=== PATIENT | female | born 1995 | race Caucasian/White ===

== ENCOUNTER 2021-05-21 07:47 | Emergency (ER) | payer BC, SELFPAY ==
--- NOTE | ~2021-05-21 | CT_ITS ---
EXAMINATION: CT abdomen pelvis w con DATE: 05/21/2021 08:46 INDICATION: Upper abdominal pain TECHNIQUE: Computed tomography (CT) of the abdomen and pelvis was performed with 100 mL Omnipaque-350 intravenous contrast. Automated exposure control and iterative reconstruction technique were employe d. The dose-length product was 415.55 mGy-cm. COMPARISON: None FINDINGS: Lung bases are clear. Heart size is normal. No pericardial or pleural effusion. Minimal focal hepatic steatosis at the ligamentum teres. Gallbladder is mildly distended with small amount of layering slu dge or stones at a phrygian cap at the fundus. No abnormal gallbladder wall thickening or pericholecy stic inflammatory change to suggest acute cholecystitis. Minimal intrahepatic biliary ductal dilation . The common bile duct measures 5 mm in maximal diameter which is within normal limits. Spleen, pancr eas, bilateral adrenal glands and kidneys are normal. Bowels including the appendix are normal. Bladd er is normal. 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 This could be due to collateral iraida inage of the left kidney resulting from compression of the left renal vein between the aorta and supe rior mesenteric artery. Retroverted uterus and bilateral adnexa are otherwise unremarkable. No free i ntraperitoneal gas or fluid. No pathologically enlarged abdominal or pelvic lymphadenopathy. L5 spond ylolysis with bilateral pars interarticularis defects and 3 mm anterolisthesis on S1. IMPRESSION: 1. Minimal intrahepatic biliary ductal dilation with suggestion of sludge versus stones within the mi ldly dilated but otherwise normal-appearing gallbladder with normal common bile duct diameter 5 mm. C orrelate with liver function tests and for Gagnon sign and could consider right upper quadrant ultras ound as clinically indicated. 2. L5 spondylolysis with 3 mm anterolisthesis on S1. 2. Dilated left gonadal vein and parametrial vessels which could be seen with pelvic vascular congest ion syndrome which is a clinical diagnosis. Reviewed, dictated and finalized at location A. IMPRESSION: 1. Minimal intrahepatic biliary ductal dilation with suggestion of sludge versu s stones within the mildly dilated but otherwise normal-appearing gallbladder w ith normal common bile duct diameter 5 mm. Correlate with liver function tests and for Gagnon sign and could consider right upper quadrant ultrasound as clini arturo indicated. 2. L5 spondylolysis with 3 mm anterolisthesis on S1. 2. 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
--- NOTE | ~2021-05-21 | US_ITS ---
EXAMINATION: US abdomen limited DATE: 05/21/2021 10:00 INDICATION: Abdominal pain. TECHNIQUE: Multiple grayscale and Doppler ultrasound images of the abdomen were obtained. COMPARISON: CT abdomen and pelvis 05/21/2021 FINDINGS: The visualized portions of the head, body, and tail of the pancreas are normal. The liver i s normal without focal lesion. There is normal flow in main portal vein. The gallbladder is distended and contains gallstones. No gallbladder wall thickening. There is a positive sonographic Gagnon sign . The common duct is normal and measures 6 mm. IMPRESSION: 1. Distended gallbladder with gallstones and positive sonographic Gagnon sign, consistent with acute cholecystitis. Reviewed, dictated and finalized at location A.
[2021-05-21 07:54] VITALS: BP 133/71; PULSE 83; RESP 18; TEMP 36.6; O2SAT 99
[2021-05-21 08:12] LABS: Basophils Percent Auto 0.4 % (0.2-1.2); Eosinophils Absolute Auto 0.1 K/mm3 (0-0.3); Eosinophils Percent Auto 1.3 % (0-4.4); Hematocrit 46.4 % (37.0-47.0); Hemoglobin 14.8 g/dL (12.0-15.0); Immature Granulocyte Absolute 0.03 K/mm3 (0.00-0.031); Immature Granulocyte Percent A 0.3 % (0-0.5); Lymphocytes Percent Auto 19.3 % (18.3-44.2); Mean Corpuscular HGB Conc 31.9 g/dl (32-36); Mean Corpuscular Hemoglobin 27.3 pg (26-34); Mean Corpuscular Volume 85.6 fl (80-100); Mean Platelet Volume 10.4 fl (7.4-10.4); Monocytes Absolute Auto 0.7 K/mm3 (0.1-0.6); Monocytes Percent Auto 6.6 % (2.6-8.5); Neutrophils Absolute Auto 7.1 K/mm3 (1.3-6.7); Neutrophils Percent Auto 72.1 % (45.5-73.1); Platelet Count Result 261 k/mm3 (150-375); Red Blood Count 5.42 M/mm3 (4.2-5.4); Red Cell Distribution Width 12.3 % (11.5-14.5); White Blood Count 9.9 K/mm3 (4.5-10.0)
[2021-05-21] MEDS: SODIUM CHLORIDE 0.9% IV 1,000 ML 999 ML IV CONT (08:22)
--- NOTE | 2021-05-21 08:22 | ED.ABDPAIN ---
HPI - Abdominal Pain General Chief Complaint: Abdominal Pain Stated Complaint: Abd Pain Time Seen by Provider: 05/21/21 08:10 Source: patient and RN notes reviewed Mode of arrival: ambulatory Limitations: no limitations History of Present Illness HPI narrative: Patient is 25 years old white female presents to the ED with epigastric right upper quadrant pain started 2 to 3 hours prior to arrival associated with nausea and radiation to the back. Dull aching, worse with bending forward, better standing or laying flat. Patient reported having recurrent similar symptoms since January 2021 without a specific diagnosis. Status post section December 2020. Patient denies any fever, vomiting, diarrhea, constipation, urinary symptoms, vaginal bleeding or discharge Related Data Allergies Allergy/AdvReac Type Severity Reaction Status Date / Time No Known Allergies Allergy Verified 05/21/21 07:58 Review of Systems Review of Systems: Narrative: CONSTITUTIONAL: Denies fever, chills, or sweats. EYES: Denies visual changes, redness, or discharge. ENT: Denies rhinorrhea, congestion, sore throat, or otalgia. CARDIOVASCULAR: Denies chest pain, palpitations, or edema. RESPIRATORY: Denies cough or dyspnea. GASTROINTESTINAL: Denies abdominal pain, nausea, vomiting, or diarrhea. GENITOURINARY: Denies dysuria or hematuria. SKIN: Denies rash or itching. MUSCULOSKELETAL: Denies back pain, joint pain, or myalgia. NEUROLOGIC: Denies headache, numbness, or weakness. PSYCHIATRIC: Denies anxiety or depression. PMFSH Social History Social History Gender identity (if verbalized by the patient): Female Exam Narrative: Exam Narrative: General appearance: Well-developed, well-nourished Skin: Normal color Head: Normocephalic, nontraumatic Eyes: Clear conjunctiva ENT: Oropharynx normal, ears normal, nose normal Neck: Supple, nontender Chest and respiratory: Airway patent, no respiratory distress, no accessory muscle use Heart: Regular rate/rhythm Abdomen: Soft, moderate tenderness right upper quadrant, no organomegaly, quiet bowel sounds Vascular: Normal peripheral pulses, normal capillary refill. Musculoskeletal: Normal range of motion, nontender back Neurologic: Alert and oriented ?3, [employer] is normal as tested, no gross motor deficit Course Consultations Consultation #1: Dr. Gaona Patient can go home, outpatient follow-up Date: 05/21/21 Time: 11:08 Vital Signs Vital signs: Vital Signs Temperature 36.6 C 05/21/21 07:54 Pulse Rate 83 05/21/21 07:54 Respiratory Rate 18 05/21/21 07:54 Blood Pressure 133/71 05/21/21 07:54 Pulse Oximetry 99 05/21/21 07:54 Temperature 36.6 C 05/21/21 07:54 Pulse Rate 88 05/21/21 09:29 Respiratory Rate 18 05/21/21 09:29 Blood Pressure 121/67 05/21/21 09:29 Pulse Oximetry 99 05/21/21 09:29 MDM - Abdominal Pain MDM Narrative Medical decision making narrative: Right upper quadrant pain, epigastric pain, Gallbladder, pancreatitis are my concern. Labs, IV fluid, IV Dilaudid, IV Zofran, CT abdomen pelvis with IV contrast ordered. Further plan to follow Differential Diagnosis Differential diagnosis: Likely abdominal pain, acute appendicitis, constipation, diverticulitis and pancreatitis Lab Data Result diagrams: 05/21/21 08:03 05/21/21 08:03 Labs: Lab Results 05/21/21 05/21/21 05/21/21 Range/Units 08:03 08:03 08:03 WBC 9.9 (4.5-10.0) K/mm3 RBC 5.42 H (4.2-5.4) M/mm3 Hgb 14.8 (12.0-15.0) g/dL Hct 46.4 (37.0-47.0) % MCV 85.6 (80-100) fl MCH 27.3 (26-34) pg MCHC 31.9 L (32-36) g/
[2021-05-21 08:23] LABS: Add Urine Microscopic? YES; Appearance Urine Cloudy (Clear); Bacteria Urine Trace /hpf; Bilirubin Urine Negative (Negative); Blood Urine 1+ (Negative); Budding Yeast Urine Present /hpf; Color Urine Yellow (Yellow); Glucose Urine UA Negative (Negative); Ketones Urine Negative (Negative); Leukocyte Esterase Ur 3+ LEU/UL (Negative); Mucus Urine Rare /lpf; Nitrate Urine Negative (Negative); Protein Urine 1+ mg/dL (Negative); Specific Grav Ur 1.026 (1.001-1.035); Squamous Epithelial Cell Urine Many /hpf (Few); Urobilinogen Urine Negative mg/dL (<2.0); WBC Urine 21-30 /hpf
[2021-05-21 08:25] LABS: Alanine Aminotransferase 32 U/L (4-35); Albumin Level 5.1 g/dL (3.5-5.1); Alkaline Phosphatase 75 U/L (38-126); Anion Gap 12 mmol/L (8-16); Aspartate Amino Transferase 51 U/L (14-36); Bilirubin,Total 0.8 mg/dL (0.2-1.3); Blood Urea Nitrogen 14 mg/dL (7-17); Calcium 9.6 mg/dL (8.4-10.2); Carbon Dioxide 23 mmol/L (22-30); Chloride 107 mmol/L (98-107); Estimated CRCL calculation 102 ml/min; Estimated Glomerular Filt Rate > 60; Glucose 88 mg/dL (65-105); Lipase 226 U/L (23-300); Potassium 4.3 mmol/L (3.4-5.0); Sodium 142 mmol/L (137-145)
[2021-05-21 09:29] VITALS: BP 121/67; PULSE 88; RESP 18; O2SAT 99
--- NOTE | 2021-05-21 09:36 | PC.NURSE ---
US at bedside to perform ultrasound
[2021-05-21 11:09] VITALS: BP 125/71; PULSE 87; RESP 18; O2SAT 100
== END 2021-05-21 11:22 | disposition home or self-care (01) ==
PROVIDERS: Emergency Provider Emergency Medicine; PCP Nurse Practitioner Family
DX: K81.0 Acute cholecystitis (principal); M43.06 Spondylolysis, lumbar region
CPT/HCPCS: 36415; 74177; 76705; 80053; 81001; 81025; 83690; 85025; 87086; 96365; 96367; 99284; J0131; J0696; J7030; Q9967

== ENCOUNTER → 2021-06-12 07:49 | Outpatient (CLI) | payer BC, SELFPAY ==
[2021-06-12 17:52] LABS: SARS-CoV-2 RNA PCR Negative
== END ==
PROVIDERS: PCP Nurse Practitioner Family; Visit Provider Surgery
DX: Z01.812 Encounter for preprocedural laboratory examination (principal); Z20.822 Contact with and (suspected) exposure to COVID-19
CPT/HCPCS: C9803; U0003; U0005

== ENCOUNTER 2021-06-12 07:50 | Outpatient (CLI) | payer BC, SELFPAY ==
[2021-06-12 08:24] LABS: Alanine Aminotransferase 25 U/L (4-35); Albumin Level 4.7 g/dL (3.5-5.1); Alkaline Phosphatase 80 U/L (38-126); Amylase 64 U/L (30-110); Aspartate Amino Transferase 19 U/L (14-36); Bilirubin,Total 0.7 mg/dL (0.2-1.3); Lipase 195 U/L (23-300)
== END 2021-06-12 07:51 | disposition home or self-care (01) ==
LOC: ANHSURGERY 07:54
PROVIDERS: Anesthesiology; PCP Nurse Practitioner Family; Visit Provider Surgery
DX: K81.9 Cholecystitis, unspecified (principal)
CPT/HCPCS: 36415; 80076; 82150; 83690; 86850; 86900; 86901

== ENCOUNTER 2021-06-15 02:17 | Day surgery (SDC) | payer BC, SELFPAY ==
[2021-06-09 14:12] VITALS: BMI 28.0
[2021-06-15] VITALS (10 sets, daily range): BP systolic 105–139; BP diastolic 54–87; PULSE 59–79; RESP 14–22; TEMP 36.2–36.5; O2SAT 97–100
[2021-06-15] MEDS: LACTATED RINGERS 1,000 ML 30 ML IV CONT ×2 (13:36→15:14)
--- NOTE | 2021-06-15 13:53 | P.PNAN_ITS ---
Anes - Initial Pre Proc Eval Procedure: Operation Date: 06/15/21 15:00 Proposed Procedures p Laparoscopic Cholecystectomy - Mary Gaona MD Date/Time: 06/15/21 13:53 Surgeon: Mary Gaona MD Pre Op Diagnosis: acute cholecystitis with stones Patient Data Age: 25 Gender: F Height: 1.6 m Weight: 72 kg Allergies Allergy/AdvReac Type Severity Reaction Status Date / Time No Known Allergies Allergy Verified 06/15/21 13:52 Home Medications Medication Instructions Recorded Confirmed Type hydrocodone-acetaminophen 1 tablet PO DAILY #20 tablet 05/21/21 06/15/21 Rx prenat.vits,parvez,ydq-pbau-hpuia 1 tablet PO DAILY 05/26/21 06/15/21 History norethindrone (contraceptive) 0.35 mg PO DAILY 06/09/21 06/15/21 History Patient hx anesthesia problems: none Family hx anesthesia problems: none [facility] Past Medical History Medical History (Updated 06/15/21 @ 13:52 by Yoel Alarcon MD) BMI 28.0-28.9,adult Surgical History Surgical History History of delivery Social History Social History Smoking status: Never smoker Alcohol intake: never Substance use: never Substance use type: does not use Living arrangements: with family Gender identity (if verbalized by the patient): Female Sexual Orientation (if Verbalized by the Patient): Straight or Heterosexual Spiritual care concerns: No Anes - Eval Final PreProcedure Day of Procedure 06/15/21 13:53 Patient weight: overweight Heart: regular rate and rhythm Lungs: clear to auscultation Airway: Mallampati scale class II Neurological: alert and oriented Last oral intake: >/= 8 hours ASA classification: II Emergent: no Anesthetic plan: proceed Anesthesia type and monitoring: general ETT and standard monitoring Informed Consent: The patient's anesthetic plan and its attendant risks and benefits were discussed with the patient/family/POA. Questions were solicited and answers provided to the satisfaction of the patient/family/POA.
--- NOTE | 2021-06-15 14:06 | WPDHPUPDATE1 ---
History and Physical Update Update Date/Time: 06/15/21 14:06 History and Physical has been reviewed, including an updated exam of the patient. There are NO changes in the patient's condition. Risks, benefits, and alternatives have been discussed and questions answered. Patient agrees to proceed with procedure.
[2021-06-15] MEDS: ceFAZolin 2 GM/D5W 50 ML 2 GM/50 ML BAG IVPB (14:15)
[2021-06-15] MEDS: BUPIVACAINE/EPINEPHRINE 0.5% 30 ML VIAL INFILTRATE (14:43)
--- NOTE | 2021-06-15 15:15 | W.PM.PROC2 ---
Procedure Note - Detailed Date of Procedure 06/15/21 Pre-op Diagnosis acute cholecystitis with stones Post-op Diagnosis same Procedure Performed Laparoscopic cholecystectomy Surgeon Mary Gaona MD Anesthesia general Indications 25-year-old female presented to the office complaining of postprandial right upper quadrant abdominal pain associated with nausea and vomiting. Workup including imaging significant for cholecystitis, cholelithiasis. Findings Cholecystitis with cholelithiasis Description of Procedure The patient was taken to the operating room placed in the supine position. After adequate induction of general anesthesia, the patient was prepped and draped in normal sterile fashion. A time-out was then performed to verify the patient's identity as well as the procedure being performed. I then made a 5 mm incision in the infraumbilical region. Through this, a Veress needle was placed into the peritoneal cavity and CO2 gas was then insufflated. After adequate pneumoperitoneum was achieved, the Veress needle was removed and a 5 mm optiview trocar was placed through this incision under direct visualization. I then placed the laparoscope through this trocar site and under direct visualization placed a further 12 mm subxiphoid port as well as 2 additional 5 mm ports in the right upper abdomen. The gallbladder was then identified and was noted to be moderately inflamed, distended, and full of gallstones. I was able to place a grasper at the dome of the gallbladder and this was retracted anterior and cephalad up over the liver. A 2nd retractor was then placed at the infundibulum and retracted laterally, this allowed visualization of the triangle of Calot. I then was able to visualize the cystic duct in its entirety from its proximal insertion into the gallbladder, to its distal junction with the common hepatic/common bile duct junction. At this point, I carefully skeletonized the proximal cystic duct with the [place] dissector. I then clipped and transected the proximal cystic duct. Next I visualized the cystic artery. Again the artery was skeletonized, clipped, and transected. I then used the Bovie cautery to take down the peritoneal attachments of the gallbladder off the liver bed. This was somewhat difficult given the amount of inflammation in the posterior space. Once the gallbladder specimen was completely detached, an endo-pouch was placed through the 12 mm port site. I then placed the gallbladder specimen into the Endo pouch and removed the endo-pouch from the 12 mm port site. The specimen will now be sent to pathology for further review. I then copiously irrigated the right upper quadrant. Some mild oozing was noted in the liver bed and this was controlled with the bovie cautery. I then placed some hemostatic powder in the liver bed. Hemostasis was noted in the liver bed, the clips were noted to be in good position on both the cystic duct stump and the cystic artery stump. No other pathology was noted in the right upper quadrant. I then moved the laparoscope to the subxiphoid port. No iatrogenic injury or other pathology was noted in the lower abdomen. I then closed the 12 mm trocar site under direct visualization using the Miller cone and 0 Vicryl suture. At this point, the abdomen was desufflated and all ports removed. All port sites were then closed with 4.O Monocryl subcuticular sutures. Dermabond was placed on each incision. The patient tolerated the procedure well, was extubated in the operating room postoperative and will be transferred to the recovery room in stable condition Estimated Blood Loss 5 Drains No Packing No Pathology yes Complications No immediate complications Condition stable Disposition PACU
== END 2021-06-15 17:48 | disposition home or self-care (01) ==
PROVIDERS: PCP Nurse Practitioner Family; Visit Provider Surgery
PROC: 0FT44ZZ Resection of Gallbladder, Percutaneous Endoscopic Approach (ICD-10-PCS; CPT 47562; principal; 2021-06-15 15:00)
DX: K80.10 Calculus of gallbladder with chronic cholecystitis without obstruction (principal)
CPT/HCPCS: 47562; 88304; A9270; C9803; J0330; J0690; J1100; J1170; J1885; J2250; J2405; J2704; J2710; J3010; J7030; J7120; U0003; U0005

== ENCOUNTER 2024-04-26 14:16 | Outpatient (CLI) | payer BC, SELFPAY ==
--- NOTE | ~2024-04-26 | US_ITS ---
COMPLETE AND LIMITED MATERNAL ULTRASOUND (Duplex and color flow interrogation techniques used f or this exam.) Ordering provider: Malou Garrison MD History: . Anatomy . Comparison: None Findings: Number of fetuses: 1 BIOMETRY: BPD: 4.3 cm (18 weeks 6 days) HC: 15.8 cm (17 weeks 1 days) AC: 12.9 cm (18 weeks days) FL: 2.7 cm (18 weeks 1 days) Today's average US gestational age: 18 weeks 4 days Today's EDC: September 23 2024 ( Estimated weight: 267.2gm . Rank: Less than 3% SCREENING OF ANATOMY: ( Y =seen and unremarkable.) Cerebellum: Yes Lateral ventricles: Yes Cisterna magna: Yes ( 5.3 mm) Stomach: Yes Kidneys: Yes Bladder: Yes Spine: Yes Three vessel cord: Yes Cord insertion: Yes Four chamber heart: Yes LVOT: Yes RVOT: Yes Lips and nose: Yes Upper extremity: Yes Lower extremity: Yes Cervix: ( 30 mm ) Presentation: Vertex. Placental location: Anterior Previa: No. Amniotic fluid index: Normal. Heart rate: 155 bpm IMPRESSION: No significant abnormal. Reviewed, dictated and finalized at location A. IMPRESSION: No significant abnormal.
== END 2024-04-26 14:17 ==
PROVIDERS: PCP Obstetrics & Gynecology Gynecology; Visit Provider Obstetrics & Gynecology Gynecology
DX: Z36.9 Encounter for antenatal screening, unspecified (principal)
CPT/HCPCS: 76805

== ENCOUNTER 2024-09-17 06:30 | Inpatient (IN) | payer BC, SELFPAY ==
[2024-09-17] VITALS (62 sets, daily range): BP systolic 102–133; BP diastolic 47–85; PULSE 77–143; TEMP 36.1–36.9; O2SAT 96–100; BMI 33.7
[2024-09-17 07:27] LABS: Basophils Percent Auto 0.2 % (0.2-1.2); Eosinophils Absolute Auto 0.2 K/mm3 (0-0.3); Eosinophils Percent Auto 1.6 % (0-4.4); Hemoglobin 12.9 g/dL (12.0-15.0); Immature Granulocyte Absolute 0.09 K/mm3 (0.00-0.031); Immature Granulocyte Percent A 0.9 % (0-0.5); Lymphocytes Absolute Auto 1.69 K/mm3 (0.9-3.2); Lymphocytes Percent Auto 17.7 % (18.3-44.2); Mean Corpuscular HGB Conc 33.9 g/dl (32-36); Mean Corpuscular Hemoglobin 28.8 pg (26-34); Mean Corpuscular Volume 84.8 fl (80-100); Mean Platelet Volume 10.9 fl (7.4-10.4); Monocytes Absolute Auto 0.7 K/mm3 (0.1-0.6); Monocytes Percent Auto 7.4 % (2.6-8.5); Neutrophils Absolute Auto 6.9 K/mm3 (1.3-6.7); Neutrophils Percent Auto 72.2 % (45.5-73.1); Platelet Count Result 192 k/mm3 (150-375); Red Blood Count 4.48 M/mm3 (4.2-5.4); Red Cell Distribution Width 13.6 % (11.5-14.5); White Blood Count 9.6 K/mm3 (4.5-10.0)
--- NOTE | 2024-09-17 07:54 | WPDOBADMIT ---
Obstetrics - Admit Note Admission Note: record reviewed. No pertinent additions to the history and/or any subsequent changes in the physical findings that are not consistent with the expected course of the were found. Additions to the history and/or subsequent changes in the physical findings follow. None.
--- NOTE | 2024-09-17 07:54 | PM.OBPNLAB ---
Pain Control Date/time seen: 09/17/24 07:40 Pain control: tolerating well Comments: Feeling occasional ctx. Pelvic Exam Dilation (cm): 2 Effacement (%): 50 station: -3 Amniotic membrane status: Intact Comments: head not ballotable. Contractions Monitor mode: External Contraction pattern: Irregular Contraction phase: Resting Contraction intensity: Mild Status Comments: FHT baseline 140. Moderate variability, +accels. Assessment and Plan Comments: CNM to bedside. Discussed plan of care and option for amniotomy. Discussed risks, benefits, and expectations of breaking water. Patient is agreeable. Amniotomy performed and there was a moderate return of clear amniotic fluid. Patient tolerated procedure well. Dr. Garrison updated.
--- NOTE | 2024-09-17 08:00 | LDADM ---
This patient, Emani Fernandez, was admitted to Labor/Delivery/Recovery 102 on 09/17/24 at 06:30. Plans for labor, pain management and were discussed with patient. Patient/family oriented to hospital policies and general routines including ID bracelet, bed and alarms, visiting hours, pain management, procedures, bathroom and other care routines, personal items, smoking policy, room service/diet and guest tray routines, security routines, and visiting hours. Patient/Family are encouraged to report perceived risks to care and to ask questions if they do not understand what they are told or what they should do. See OBIX for further documentation.
[2024-09-17 08:17] LABS: HIV 1/2 Ab P24 Ag Result Negative (Negative)
[2024-09-17 08:50] LABS: Rapid Plasma Reagin Non-Reactive (NonReactive)
--- NOTE | 2024-09-17 12:49 | PM.OBPNLAB ---
Pain Control Date/time seen: 09/17/24 12:30 Pain control: tolerating well Pelvic Exam Dilation (cm): 2 (2.5) Effacement (%): 50 station: -3 Amniotic membrane status: Ruptured Contractions Monitor mode: External Contraction pattern: Irregular Contraction phase: Resting Contraction intensity: Mild Status Comments: FHTs 135 to 140 baseline with occasional variable decelerations. Moderate variability and accels present. Assessment and Plan Comments: Discussed plan of care. Recommend IUPC placement and discussed option of membrane sweep. Pt agreeable to both. Membrane sweep performed. IUPC inserted easily, returned with clear fluid. Dr. Garrison updated on pt status. Recommend frequent position changes and upright positions as much as possible.
--- NOTE | 2024-09-17 13:07 | PM.IMHP ---
H&P: HPI History of Present Illness Date/Time: 09/17/24 1230 Chief Complaint: TOLAC at term Narrative: 1. 29 y.o. at term 2. TOLAC -hx successful 3. Rubella Non-Immune Review of Systems Review of Systems: All systems reviewed & are unremarkable except as noted in HPI and below Constitutional: Constitutional: Reports no additional constitutional complaints PMFSH Past Medical History Medical History BMI 28.0-28.9,adult Surgical History Surgical History History of delivery Hx laparoscopic cholecystectomy Family History Family History (Updated 08/31/24 @ 13:34 by Santa Hsu RN) Other No pertinent family history Social History Social History Smoking status: Never smoker Second hand tobacco smoke exposure: No Alcohol intake: never Substance use: never Substance use type: does not use Do You Feel Safe in your Home?: Yes Lack of Transportation: No Lack of Food: Never True Current Housing: I Have Housing Concerned About Future Housing: No Difficulty Paying Gas/Electric Bills: No Difficulty Paying for Meds: No Currently Unemployed: No Education: High School Diploma/GED Difficulty w/ Childcare or Family Care: No Living arrangements: with family Gender identity (if verbalized by the patient): Female Sexual Orientation (if Verbalized by the Patient): Straight or Heterosexual Spiritual care concerns: No Meds Home Medications and Allergies Home Medications Medication Instructions Recorded Confirmed Type prenat.vits,parvez,[id number] 1 tablet PO DAILY 05/26/21 08/31/24 History Allergies Allergy/AdvReac Type Severity Reaction Status Date / Time No Known Allergies Allergy Verified 08/31/24 13:27 Vital Signs Vital Signs - 24 hr 09/17/24 07:16 09/17/24 07:00 09/17/24 08:40 Temperature 97.1 F L Pulse Rate 99 90 Blood Pressure 129/77 113/85 Oxygen Delivery 09/17/24 08:30 09/17/24 10:09 09/17/24 12:06 Temperature 97 F L 97.6 F 97.5 F L Pulse Rate 77 97 Blood Pressure 117/78 131/81 Oxygen Delivery 09/17/24 07:59 Temperature Pulse Rate Blood Pressure Oxygen Delivery Room Air Exam Narrative: Latent labor at term Const: General: comfortable and no acute distress Other: Feeling occasional contractions HENMT: Mouth: Yes moist mucous membranes Eyes: General: appearance normal, both eyes and all related structures Neck: Neck: supple Resp: Effort & Inspection: normal respiratory effort Cardio: Rate: regular rate GI: GI Palp: Yes Soft to palpation Other: Gravid : General: Yes bladder normal to palpation Skin: General skin exam: normal color and no rashes or lesions noted Neuro: General: gait normal Sensory Exam: normal sensation Extrem: General: normal to inspection Psych: Mental Status: mental status grossly normal Affect: normal affect H&P: Results Labs Labs: Short CBC 09/17/24 Range/Units 07:11 WBC 9.6 (4.5-10.0) K/mm3 Hgb 12.9 (12.0-15.0) g/dL Hct 38.0 (37.0-47.0) % Plt Count 192 (150-375) k/mm3 Assessment and Plan Assessment and plan (1) Failed trial of labor, unspecified: Code(s): O66.40 - Failed trial of labor, unspecified Status: Acute (2) Rubella non-immune status, antepartum: Code(s): O09.899 - Supervision of other high risk pregnancies, unspecified trimester; Z28.39 - Other underimmunization status Status: Acute Plan 1. TOLAC at term -Hx Successful - plan of care per Dr. Garrison is amniotomy and expectant management - IUPC in place 2. Rubella Non-Immune - plan MMR 3. Resolved IUGR
--- NOTE | 2024-09-17 16:55 | PM.OBPNLAB ---
Pain Control Date/time seen: 09/17/24 16:55 Comments: Reviewed tracing from office. CNM at bedside at 1530. Pelvic Exam Amniotic membrane status: Ruptured Contractions Monitor mode: Internal Contraction pattern: Irregular (very occasional) Contraction phase: Resting Contraction intensity: Mild Status Comments: Baseline 135 with moderate variability, +accels. Assessment and Plan Plan: continuous present management Comments: Discussed plan of care at bedside with pt at 1530. Strip reviewed from office at 1655. Discussed plan of care with Dr. Garrison. Plan expectant management x 12 hours after amniotomy.
[2024-09-17] MEDS: LACTATED RINGERS 1,000 ML 125 ML IV CONT (19:56)
[2024-09-17] MEDS: OXYTOCIN 30 UNITS/NS 500 ML 30 UNITS/500 ML BAG IV CONT (19:57)
--- NOTE | 2024-09-17 23:42 | WPDANESEPP ---
Anes - Eval Pre Procedure Procedure: Labpr Epidural Date/Time: 09/17/24 23:42 Surgeon: Meli Preop Diagnosis: Labor Pain Pre Op Diagnosis: IOL Patient Data Age: 29 Gender: F Height: 1.6 m Weight: 86.3 kg Last Vital Signs Temp 36.9 C 09/17/24 22:00 Pulse 105 H 09/17/24 23:32 BP 102/47 L 09/17/24 23:32 Pulse Ox 98 09/17/24 23:39 O2 Del Method Room Air 09/17/24 07:59 Allergies Allergy/AdvReac Type Severity Reaction Status Date / Time No Known Allergies Allergy Verified 08/31/24 13:27 Home Medications Medication Instructions Recorded Confirmed Type prenat.vits,parvez,[id number] 1 tablet PO DAILY 05/26/21 08/31/24 History Laboratory Tests 09/17/24 07:11 WBC 9.6 K/mm3 (4.5-10.0) RBC 4.48 M/mm3 (4.2-5.4) Hgb 12.9 g/dL (12.0-15.0) Hct 38.0 % (37.0-47.0) MCV 84.8 fl (80-100) MCH 28.8 pg (26-34) MCHC 33.9 g/dl (32-36) RDW 13.6 % (11.5-14.5) Plt Count 192 k/mm3 (150-375) MPV 10.9 H fl (7.4-10.4) Immature Gran % (Auto) 0.9 H % (0-0.5) Neut % (Auto) 72.2 % (45.5-73.1) Lymph % (Auto) 17.7 L % (18.3-44.2) [place] % (Auto) 7.4 % (2.6-8.5) Eos % (Auto) 1.6 % (0-4.4) Baso % (Auto) 0.2 % (0.2-1.2) Lymph # (Auto) 1.69 K/mm3 (0.9-3.2) [place] # (Auto) 0.7 H K/mm3 (0.1-0.6) Eos # (Auto) 0.2 K/mm3 (0-0.3) Baso # (Auto) 0.0 K/mm3 (0.0-0.1) Abs Immat Gran (auto) 0.09 H K/mm3 (0.00-0.031) Absolute Neuts (auto) 6.9 H K/mm3 (1.3-6.7) Absolute Nucleated RBC 0.000 K/mm3 (0.0-0.012) Nucleated RBC % 0.0 % (0.0-0.2) RPR Non-reactive (NonReactive) HIV 1&2 Ab/P24 Ag 4thGn Negative (Negative) Blood Type A Positive Antibody Screen Negative : gestational age (, PEÑA 09.17.24) Patient hx anesthesia problems: none Family hx anesthesia problems: none Results Review: All pre-operative results and documents have been reviewed as part of the pre-operative evaluation. [facility] Past Medical History Medical History BMI 28.0-28.9,adult Surgical History Surgical History History of delivery Hx laparoscopic cholecystectomy Family History Family History Other No pertinent family history Social History Social History Smoking status: Never smoker Second hand tobacco smoke exposure: No Alcohol intake: never Substance use: never Substance use type: does not use Do You Feel Safe in your Home?: Yes Lack of Transportation: No Lack of Food: Never True Current Housing: I Have Housing Concerned About Future Housing: No Difficulty Paying Gas/Electric Bills: No Difficulty Paying for Meds: No Currently Unemployed: No Education: High School Diploma/GED Difficulty w/ Childcare or Family Care: No Living arrangements: with family Gender identity (if verbalized by the patient): Female Sexual Orientation (if Verbalized by the Patient): Straight or Heterosexual Spiritual care concerns: No Exam Day of Procedure 09/17/24 23:42 Patient weight: normal Heart: regular rate and rhythm Lungs: normal air movement Airway: Mallampati scale class II Neurological: alert and oriented
[2024-09-18] VITALS (72 sets, daily range): BP systolic 99–152; BP diastolic 41–114; PULSE 63–174; RESP 16; TEMP 36.3–36.9; O2SAT 97–100
[2024-09-18] MEDS: AMPICILLIN 2 GM/NS 100 ML 2 GM/100 ML BAG IVPB (01:41)
--- NOTE | 2024-09-18 02:22 | PM.OBPRVD ---
OB - Vaginal Delivery Note Procedure Delivery date: 09/18/24 Events: Previous Delivery Induction method: AROM Delivery augmentation: Pitocin Delivery monitor: External FHT and Internal Uterine Route of delivery: Laceration Description: Periurethral (above urethra) and Perineal - 1st Degree Delivery repair: vicryl (3-0) Specimen: No Quantitative Blood Loss (ml): 150 Anesthesia type: Epidural (and local) Disposition: Floor Complications: No immediate complications Narrative: The patient sat up for epidural and when laid back down head delivering. I was on unit and infant delivered into bed as I was walking into room. Baby Date of : 09/18/24 Infant gender: Male presentation: vertex Placenta delivery description: Spontaneous Cord Vessel Description: 3 Vessels and Delayed Cord Clamping score one minute: 8 score five minutes: 9
--- NOTE | 2024-09-18 02:24 | P.DS_ITS ---
DS: Admitting Diagnosis Discharge Date 09/19/24 Admitting Diagnosis IUP 39 wks for MIL prior csection DS: Discharge Diagnosis Discharge Diagnosis (1) , delivered: Code(s): O34.219 - Maternal care for unspecified type scar from previous delivery Status: Acute OB - DS: Summary OB Procedures : Ultrasound OB Procedures Intrapartum: Spontaneous Vag Delivery and OB Procedures: : None Peripartum Data Delivery Method: Natural Vaginal Laceration Description: Periurethral (above urethra) and Perineal - 1st Degree Episiotomy description: None complications: none Status at Discharge Functional status at discharge: independent ambulation Overall status at discharge: patient is progressing back to baseline Time Spent with Patient Time attestation: Total time spent providing and/or coordinating discharge services: DS: Data Data Completed and Pending Labs on day of discharge: Labs from last 24 hours 09/17/24 07:11 WBC 9.6 RBC 4.48 Hgb 12.9 Hct 38.0 MCV 84.8 MCH 28.8 MCHC 33.9 RDW 13.6 Plt Count 192 MPV 10.9 H Immature Gran % (Auto) 0.9 H Neut % (Auto) 72.2 Lymph % (Auto) 17.7 L Appling % (Auto) 7.4 Eos % (Auto) 1.6 Baso % (Auto) 0.2 Lymph # (Auto) 1.69 Appling # (Auto) 0.7 H Eos # (Auto) 0.2 Baso # (Auto) 0.0 Abs Immat Gran (auto) 0.09 H Absolute Neuts (auto) 6.9 H Absolute Nucleated RBC 0.000 Nucleated RBC % 0.0 RPR Non-reactive HIV 1&2 Ab/P24 Ag 4thGn Negative Blood Type A Positive Antibody Screen Negative Discharge Plan Discharge Attending physician on discharge: Malou Garrison Discharging Clinician: Petrona Carlisle Anticipated Discharge Date/Time: 09/20/24 07:26 Patient Disposition: Home, Self-Care Activity: no shower and pelvic rest Diet: regular Wound Care Instructions: follow printed instructions Discharge Instructions: Continue taking your vitamin and any other supplements as previously directed (Examples: Iron, Vitamin D). You may take Tylenol 1000mg over the counter every 6 hours as needed for pain. Do not exceed 4000mg of Tylenol daily. You may continue using tucks pads and dermoplast spray if needed for a few more days. Depression * Notify provider for signs or symptoms. These may include- * Feelings: Feeling anxious, angry, hopeless, guilt, or loss of interest/pleasure in activities you normally enjoy. Mood swings or panic attacks. * General: Extreme fatigue, loss of your appetite, feeling restless. Crying excessively, irritability, insomnia * Psychological: Lack of concentration, depression or fear, unwanted thoughts * Weight: Significant gain or loss * Safety: Thoughts of harming yourself or your baby. Education: Mom and Baby Guide Given to: Mother Follow-Up: Call your delivering provider's office for an appointment to be seen in: 4 Weeks Mom and baby should come to the [facility] for the follow-up appointment. Appointment Date/Time: September 20, 2024 at 8:00 am What to expect at your follow-up visit: Call [phone] if you are unable to keep your appointment time. BREAST CARE: * Wear a snug supportive bra. * For engorgement discomfort: Breast Feeding: * Apply warm moist washcloths * Express milk as needed to relieve engorgement * Wear loose clothing Bottle Feeding: * May apply ice packs * For sore nipples: * Identify correct latch-on * Apply warm moist washcloths before and after nursing * Air dry nipples after nursing * May apply Lansinoh cream to nipples ABDOMINAL INCISION: (if applicable) * Allow incision to air dry * Do NOT use lotions for powders on your incision * When showering, allow soap and water to run over the incision, but do not wash incision EPISIOTOMY/PERINEAL CARE: * Until bleeding stops, use your patti bottle after urinating * Change your pad frequently throughout the day * You may take sitz baths several times a day (fill your bathtub with warm water and soak for 20 minutes.) Do NOT bathe in the water * No tub baths until seen by your physician - You may shower ACTIVITY: * Rest as much as possible. * Do not exercise or lift anything heavier than your baby (such as laundry or other children.) * Avoid stairs or driving as much as possible. * Do not put anything into the vagina. No douching, tampons, or sexual activity until seen by physician. NOTIFY PHYSICIAN IF YOU HAVE ANY QUESTIONS OR IF ANY OF THE FOLLOWING SYMPTOMS OCCUR: * If your episiotomy or incision becomes red, swollen, or more painful than what you have experienced in the hospital. * If your vaginal bleeding becomes foul smelling. * If your vaginal bleeding becomes more heavy than a period or if your bleeding changes from pink to bright red. However, you may pass an occasional walnut- sized clot once or twice for the first week . * If you experience a sharp, shooting pain in you calves. * If you discover a hard, reddened area on your breast or if you experience flu- like symptoms. DIET: * Eat regular, well-balanced meals. * Drink plenty of fluids daily. If , drink to thirst. Patient Instructions: Your Baby (DC), Vaginal Delivery (DC) Stand Alone Forms: General Discharge Information Follow-up/Referrals: Petrona Carlisle, REGINAM [Certified Nurse Supervisor Process Testing] - (6 weeks ) Discharge Medications: New docusate sodium 100 mg Capsule 100 mg PO BID PRN (Reason: Constipation) Qty: 60 0RF ibuprofen 600 mg Tablet 600 mg PO Q6H PRN (Reason: Cramping) Qty: 30 0RF Continued prenat.vits,parvez,[id number] Tablet 1 tablet PO DAILY Date of admission: 09/17/24 06:30 Primary Care Provider: UNKNOWN,DOCTOR Admitting Provider: Malou Garrison Attending physician on admission: Malou Garrison Condition: Stable
[2024-09-18] MEDS: OXYTOCIN 30 UNITS/NS 500 ML 30 UNITS/500 ML BAG 125 UNITS IV CONT (02:44)
[2024-09-18] MEDS: LACTATED RINGERS 1,000 ML 125 ML IV CONT (02:45)
[2024-09-18] MEDS: WITCH HAZEL 40 PADS 1 PAD TOPICAL (05:01)
[2024-09-18] MEDS: BENZOCAINE 20% AER SPR (*SP) 56 GM CAN 1 SPRAY TOPICAL (05:01)
[2024-09-18] MEDS: ACETAMINOPHEN 325 MG TABLET 650 MG PO ×2 (05:36→17:31)
[2024-09-18] MEDS: IBUPROFEN 600 MG TABLET PO ×2 (05:36→13:03)
--- NOTE | 2024-09-18 05:53 | PC.NURSE ---
0515- pt arrived to unit via WC to room #279 in stable condition. Pt transferred into bed without difficulty.
[2024-09-18] MEDS: DOCUSATE SODIUM 100 MG CAPSULE PO ×2 (08:05→17:31)
[2024-09-18] MEDS: MULTIVIT/MIN/PREN/FOL AC/IRON TABLET 1 TAB PO (08:05)
--- NOTE | 2024-09-18 10:30 | PC.NURSE ---
Introductions were made, then consulted with patient to assess needs related to . Discussed with mother her?plans to feed?her and the?experience so far. This is her 3rd baby and she breastfed the other 2. She has some soreness but she said this is 'normal' for her at the beginning of . Baby has been sleepy this morning but mom did just latch him independently. Resources provided for inpatient and outpatient services with the feeding sheet, mom/baby guide and name written on the communication board. Mother voiced understanding of information and will call if there is a request for assistance. Reported to the Primary RN.
[2024-09-19] MEDS: IBUPROFEN 600 MG TABLET PO ×2 (00:30→07:20)
[2024-09-19 04:25] LABS: Hematocrit 36.8 % (37.0-47.0); Hemoglobin 12.6 g/dL (12.0-15.0)
[2024-09-19] MEDS: MULTIVIT/MIN/PREN/FOL AC/IRON TABLET 1 TAB PO (07:20)
[2024-09-19] MEDS: DOCUSATE SODIUM 100 MG CAPSULE PO (07:20)
--- NOTE | 2024-09-19 07:47 | P.PNOB_ITS ---
OB - PN: Subj Subjective Date/time seen: 09/19/24 07:22 Interval history: Post Day 1 from . Doing well. Urinating without difficulty. Denies passing any large clots. Denies dizziness with ambulating. Tolerating po food and fluids. Bonding with . well Patient comments: no complaints and pain well controlled [place] baby status: doing well and nursing well [place] feeding status: exclusively breast feeding OB - PN: Obj Data Labs 09/19/24 04:04 Labs: Laboratory Results - last 24 hr 09/19/24 04:04 Hgb 12.6 Hct 36.8 L OB - PN A/P Assessment and Plan (1) , delivered: Code(s): O34.219 - Maternal care for unspecified type scar from previous delivery Status: Acute (2) Rubella non-immune status, antepartum: Code(s): O09.899 - Supervision of other high risk pregnancies, unspecified trimester; Z2 8.39 - Other underimmunization status Status: Acute Assessment and Plan: plan MMR prior to DC Plan day: 1 Plan: discharge home Time Spent With Patient Time: Total time spent is greater than 50% in coordination of care (as documented) at patient's floor/unit and/or counseling patient: Review of Systems Review of Systems: All systems reviewed & are unremarkable except as noted in HPI and below Exam Narrative: Alert and oriented. Mood is pleasant and cooperative. Perineum with minimal edema. Fundus firm and below umbilicus. Const: General: cooperative, healthy appearing, no acute distress and alert Orientation/consciousness: patient oriented x3 Limitations: no limitations Resp: Effort & Inspection: normal respiratory effort and able to speak in complete sentences Cardio: Rate: regular rate GI: Inspection: normal to inspection GI Palp: Yes Soft to palpation : General: Yes bladder normal to palpation External Female Exam: other (lochia WNL) Bimanual exam- vagina & uterus: bladder normal to palpation Other: Fundus firm and below U Skin: General skin exam: normal color and no rashes or lesions noted Neuro: General: patient oriented x3 and moves all extremities Cognition (Neuro): normal cognition Speech: normal speech Sensory Exam: normal sensation Extrem: General: normal to inspection and no calf tenderness Psych: Appearance: grossly normal Mental Status: mental status grossly normal Affect: normal affect Thought process: Normal thought process present
--- NOTE | 2024-09-19 08:00 | PC.NURSE ---
Consulted with mother concerning needs and she shared her ability to independently latch infant optimally without pain, but she does have some nipple tenderness. Mother is feeding appropriately for growth of infant and understands stimulating infant to eat if needed. Infant has had appropriate feedings in the last 24 hours meets the outcomes for weight, output, blood sugar and jaundice at this time. Baby has a dry mouth and struggles to latch sometimes; encouraged mom to use expressed breast milk to moisten his mouth. Reinforced understanding of milk production, transition of milk, signs of adequate intake, transition of stool, responsive watching for feeding cues, the different methods of stimulating infant to breastfeed 1-3 hours after the start of the last feeding, community resources, and when to call a provider using the resource of the feeding sheet along with the mom and baby guide. Mother voiced understanding of the information shared, is confident to continue effectively her at home, when to call for assistance, denies any additional assistance or education at this time. Reported to the Primary RN.
[2024-09-19 08:10] VITALS: BP 112/73; PULSE 82; RESP 16; TEMP 36.9; O2SAT 100
[2024-09-19] MEDS: MEASLES,MUMPS,RUBELLA VACCINE 0.5 ML VIAL SUB-Q (09:35)
[2024-09-20 08:02] VITALS: BP 126/75; PULSE 89; RESP 16; TEMP 36.6; O2SAT 98
== END 2024-09-19 10:00 | disposition home or self-care (01) | DRG 807 ==
LOC: ANHLDR 09-18 02:26 → ANHOB2 09-18 05:30
PROVIDERS: Admitting Provider Obstetrics & Gynecology Gynecology; Visit Provider Obstetrics & Gynecology Gynecology
DX: O34.211 Maternal care for low transverse scar from previous cesarean delivery (principal); Z37.0 Single live birth; Z3A.40 40 weeks gestation of pregnancy; O70.0 First degree perineal laceration during delivery; O36.8330 Maternal care for abnormalities of the fetal heart rate or rhythm, third trimester, not applicable or unspecified
CPT/HCPCS: 36415; 85014; 85018; 85025; 86592; 86703; 86850; 86900; 86901; 90710; A9270; G0432; J0290; J2590; J2795; J7120